=== PATIENT | male | born 1955 | race Caucasian/White ===

== ENCOUNTER 2016-12-14 15:20 | Inpatient (IN) | payer BC ==
[~2016-12-14] VITALS: Ht 170.2 cm; Wt 103.8 kg
[2016-12-14 16:12] VITALS: BP_SYST 108; BP_SYST 118; RESP 24; TEMP 97.7
[2016-12-14 16:13] VITALS: BMI 36.8
[2016-12-14] MEDS: METOPROLOL XL 25 MG TAB PO SCH (16:15)
[2016-12-14] MEDS: DIGOXIN 0.25 MG TAB PO SCH (16:15)
[2016-12-14 16:26] VITALS: Ht 170.2 cm; Wt 103.8 kg
[2016-12-14] MEDS ORDERED: KCL CR 20 MEQ TAB PO ONE (17:55)
[2016-12-14] MEDS: ASPIRIN 81 MG CHEW TAB PO SCH (17:56)
[2016-12-14] MEDS: SPIRONOLACTONE 25 MG TAB PO SCH (18:03)
[2016-12-14] MEDS: DIGOXIN 0.125 MG TAB PO ONE ×2 (18:09→18:53)
[2016-12-14] MEDS: DIGOXIN 0.25 MG TAB PO ONE ×2 (18:10→18:54)
[2016-12-14] MEDS ORDERED: Furosemide 20 MG/2 ML VIAL IV ONE (18:40)
[2016-12-14] MEDS: KCL CR 20 MEQ TAB PO SCH (18:55)
[2016-12-14 19:35] VITALS: BP_SYST 120; RESP 22; TEMP 97.3
[2016-12-14] MEDS: ENOXAPARIN 40 MG/0.4 ML SYR SUBQ SCH (20:43)
[2016-12-14] MEDS: Furosemide 20 MG/2 ML VIAL IV SCH (20:43)
[2016-12-14] MEDS: ENTRESTO PO SCH (20:45)
[2016-12-14] MEDS: Atorvastatin 10 MG TAB PO SCH (20:45)
[2016-12-14] MEDS: PANTOPRAZOLE 40 MG TAB PO SCH (20:45)
[2016-12-14] MEDS: ZOLPIDEM 5 MG TAB PO PRN (22:09)
[2016-12-14 22:40] VITALS: BP_SYST 138; RESP 22; TEMP 97.9
[2016-12-15] VITALS (8 sets, daily range): BP systolic 101–132; RESP 20–24; TEMP 97.2–97.9
[2016-12-15] MEDS: SPIRONOLACTONE 25 MG TAB PO SCH (09:37)
[2016-12-15] MEDS: ASPIRIN 81 MG CHEW TAB PO SCH (09:37)
[2016-12-15] MEDS: Furosemide 20 MG/2 ML VIAL IV SCH (09:37)
[2016-12-15] MEDS: METOPROLOL XL 25 MG TAB PO SCH (09:38)
[2016-12-15] MEDS: KCL CR 20 MEQ TAB PO SCH ×2 (09:38→21:42)
[2016-12-15] MEDS: ENTRESTO PO SCH ×2 (09:38→21:42)
[2016-12-15] MEDS: ENOXAPARIN 40 MG/0.4 ML SYR SUBQ SCH (09:39)
[2016-12-15] MEDS: DIGOXIN 0.25 MG TAB PO SCH (12:00)
[2016-12-15] MEDS ORDERED: KCL CR 20 MEQ TAB PO ONE (17:40)
[2016-12-15] MEDS ORDERED: DIGOXIN 0.125 MG TAB PO ONE (17:40)
[2016-12-15] MEDS: DUONEB INH SCH ×2 (17:52→23:07)
[2016-12-15] MEDS: PANTOPRAZOLE 40 MG TAB PO SCH (21:41)
[2016-12-15] MEDS: Atorvastatin 10 MG TAB PO SCH (21:42)
[2016-12-15] MEDS: ZOLPIDEM 5 MG TAB PO PRN (21:47)
[2016-12-16] VITALS (8 sets, daily range): BP systolic 90–126; RESP 20–25; TEMP 97.4–98.6
[2016-12-16] MEDS ORDERED: ONDANSETRON 4 MG TAB PO PRN (00:30)
[2016-12-16] MEDS: PANTOPRAZOLE 40 MG TAB PO SCH ×2 (06:14→16:34)
[2016-12-16] MEDS: Furosemide 20 MG/2 ML VIAL IV SCH (08:49)
[2016-12-16] MEDS: SPIRONOLACTONE 25 MG TAB PO SCH (08:51)
[2016-12-16] MEDS: ASPIRIN 81 MG CHEW TAB PO SCH (08:51)
[2016-12-16] MEDS: ENOXAPARIN 40 MG/0.4 ML SYR SUBQ SCH (08:51)
[2016-12-16] MEDS: ENTRESTO PO SCH ×2 (08:51→19:31)
[2016-12-16] MEDS: METOPROLOL XL 25 MG TAB PO SCH (08:51)
[2016-12-16] MEDS: KCL CR 20 MEQ TAB PO SCH (08:52)
[2016-12-16] MEDS: DIGOXIN 0.25 MG TAB PO SCH (11:34)
[2016-12-16] MEDS ORDERED: Furosemide 20 MG/2 ML VIAL IV ONE (15:00)
[2016-12-16] MEDS: DUONEB INH SCH ×2 (17:15→22:04)
[2016-12-16] MEDS: ZOLPIDEM 5 MG TAB PO PRN (19:32)
[2016-12-16] MEDS: Atorvastatin 10 MG TAB PO SCH (19:32)
[2016-12-16] MEDS: SERTRALINE 25 MG TAB PO SCH (19:32)
[2016-12-16] MEDS ORDERED: LORAZEPAM 0.5 MG TAB PO PRN (23:40)
[2016-12-17] MEDS ORDERED: KCL CR 20 MEQ TAB PO SCH
[2016-12-17 03:47] VITALS: BP_SYST 118; RESP 20; TEMP 97.9
[2016-12-17] MEDS: PANTOPRAZOLE 40 MG TAB PO SCH ×2 (06:52→17:25)
[2016-12-17] MEDS: DUONEB INH SCH ×3 (06:52→23:55)
[2016-12-17 07:52] VITALS: BP_SYST 120; RESP 20; TEMP 98.1
[2016-12-17] MEDS: ENTRESTO PO SCH (09:20)
[2016-12-17] MEDS: METOPROLOL XL 25 MG TAB PO SCH (09:20)
[2016-12-17] MEDS: ASPIRIN 81 MG CHEW TAB PO SCH (09:20)
[2016-12-17] MEDS: SPIRONOLACTONE 25 MG TAB PO SCH (09:20)
[2016-12-17] MEDS: Furosemide 20 MG/2 ML VIAL IV SCH (09:21)
[2016-12-17] MEDS: ENOXAPARIN 40 MG/0.4 ML SYR SUBQ SCH (09:22)
[2016-12-17 12:10] VITALS: BP_SYST 110; RESP 28; TEMP 98.3
[2016-12-17] MEDS: DIGOXIN 0.25 MG TAB PO SCH (12:32)
[2016-12-17 15:37] VITALS: BP_SYST 104; RESP 24; TEMP 98.2
[2016-12-17 19:40] VITALS: BP_SYST 118; RESP 22; TEMP 98.1
[2016-12-17] MEDS: Atorvastatin 10 MG TAB PO SCH (20:23)
[2016-12-17] MEDS: SERTRALINE 25 MG TAB PO SCH (20:23)
[2016-12-17] MEDS: ENTRESTO 24/26 MG TAB PO SCH (20:24)
[2016-12-17] MEDS: ZOLPIDEM 5 MG TAB PO PRN (22:18)
[2016-12-18 01:22] VITALS: BP_SYST 140; RESP 24; TEMP 98.3
[2016-12-18 03:45] VITALS: BP_SYST 132; RESP 22; TEMP 98.9
[2016-12-18] MEDS: PANTOPRAZOLE 40 MG TAB PO SCH ×2 (06:50→17:06)
[2016-12-18] MEDS: DUONEB INH SCH ×3 (07:37→23:00)
[2016-12-18 08:17] VITALS: BP_SYST 152; RESP 20; TEMP 97
[2016-12-18] MEDS: METOPROLOL XL 25 MG TAB PO SCH (08:37)
[2016-12-18] MEDS: SPIRONOLACTONE 25 MG TAB PO SCH (08:37)
[2016-12-18] MEDS: ENTRESTO 24/26 MG TAB PO SCH ×2 (08:37→21:07)
[2016-12-18] MEDS: ASPIRIN 81 MG CHEW TAB PO SCH (08:37)
[2016-12-18] MEDS: ENOXAPARIN 40 MG/0.4 ML SYR SUBQ SCH (08:39)
[2016-12-18] MEDS: Furosemide 20 MG/2 ML VIAL IV SCH (08:40)
[2016-12-18 10:43] VITALS: BP_SYST 130; RESP 22; TEMP 97.6
[2016-12-18] MEDS: DIGOXIN 0.25 MG TAB PO SCH (12:29)
[2016-12-18 14:29] VITALS: BP_SYST 112; RESP 18; TEMP 97.1
[2016-12-18] MEDS ORDERED: Furosemide 20 MG/2 ML VIAL IV ONE (16:05)
[2016-12-18 19:18] VITALS: BP_SYST 120; RESP 20; TEMP 97.4
[2016-12-18] MEDS: Atorvastatin 10 MG TAB PO SCH (21:07)
[2016-12-18] MEDS: SERTRALINE 25 MG TAB PO SCH (21:07)
[2016-12-18] MEDS: ZOLPIDEM 5 MG TAB PO PRN (21:13)
[2016-12-19 03:36] VITALS: BP_SYST 110; RESP 18; TEMP 98; TEMP 98.4
[2016-12-19] MEDS: PANTOPRAZOLE 40 MG TAB PO SCH ×2 (05:57→17:01)
[2016-12-19] MEDS: DUONEB INH SCH ×3 (06:54→22:59)
[2016-12-19 08:16] VITALS: BP_SYST 132; RESP 20; TEMP 97.4
[2016-12-19] MEDS: ASPIRIN 81 MG CHEW TAB PO SCH (08:18)
[2016-12-19] MEDS: Furosemide 40 MG/4 ML VIAL IV SCH (08:18)
[2016-12-19] MEDS: METOPROLOL XL 25 MG TAB PO SCH (08:18)
[2016-12-19] MEDS: ENOXAPARIN 40 MG/0.4 ML SYR SUBQ SCH (08:19)
[2016-12-19] MEDS: ENTRESTO 24/26 MG TAB PO SCH ×2 (08:19→21:49)
[2016-12-19] MEDS: SPIRONOLACTONE 25 MG TAB PO SCH (08:19)
[2016-12-19 12:11] VITALS: BP_SYST 122; RESP 20; TEMP 97.6
[2016-12-19] MEDS: DIGOXIN 0.25 MG TAB PO SCH (12:35)
[2016-12-19 14:51] VITALS: BP_SYST 122; RESP 20; TEMP 97.5
[2016-12-19 19:31] VITALS: BP_SYST 110; RESP 18; TEMP 97.2
[2016-12-19] MEDS: Atorvastatin 10 MG TAB PO SCH (21:49)
[2016-12-19] MEDS: ZOLPIDEM 5 MG TAB PO PRN (21:49)
[2016-12-19] MEDS: SERTRALINE 25 MG TAB PO SCH (21:49)
[2016-12-20] MEDS: PANTOPRAZOLE 40 MG TAB PO SCH ×2 (06:34→17:18)
[2016-12-20] MEDS: DUONEB INH SCH ×3 (07:23→22:19)
[2016-12-20 08:26] VITALS: BP_SYST 122; RESP 20; TEMP 96.8
[2016-12-20] MEDS: Furosemide 40 MG/4 ML VIAL IV SCH (09:20)
[2016-12-20] MEDS: METOPROLOL XL 25 MG TAB PO SCH (09:20)
[2016-12-20] MEDS: ASPIRIN 81 MG CHEW TAB PO SCH (09:20)
[2016-12-20] MEDS: ENTRESTO 24/26 MG TAB PO SCH ×2 (09:20→21:40)
[2016-12-20] MEDS: SPIRONOLACTONE 25 MG TAB PO SCH (09:20)
[2016-12-20] MEDS: ENOXAPARIN 40 MG/0.4 ML SYR SUBQ SCH (09:21)
[2016-12-20 11:31] VITALS: BP_SYST 112; RESP 20; TEMP 97.4
[2016-12-20] MEDS: DIGOXIN 0.25 MG TAB PO SCH (12:51)
[2016-12-20 15:31] VITALS: BP_SYST 112; RESP 20; TEMP 97.6
[2016-12-20 20:32] VITALS: BP_SYST 100; RESP 20; TEMP 97.8
[2016-12-20] MEDS: Atorvastatin 10 MG TAB PO SCH (21:40)
[2016-12-20] MEDS: SERTRALINE 25 MG TAB PO SCH (21:40)
[2016-12-20] MEDS: ZOLPIDEM 5 MG TAB PO PRN (21:40)
[2016-12-21 00:41] VITALS: BP_SYST 110; RESP 20; TEMP 97.5
[2016-12-21 05:12] VITALS: BP_SYST 106; RESP 18; TEMP 97.7
[2016-12-21] MEDS: PANTOPRAZOLE 40 MG TAB PO SCH (06:13)
[2016-12-21] MEDS: DUONEB INH SCH (07:00)
[2016-12-21 07:42] VITALS: BP_SYST 128; BP_SYST 83; RESP 18; TEMP 97.3
[2016-12-21] MEDS: ASPIRIN 81 MG CHEW TAB PO SCH (08:55)
[2016-12-21] MEDS: SPIRONOLACTONE 25 MG TAB PO SCH (08:55)
[2016-12-21] MEDS: ENTRESTO 24/26 MG TAB PO SCH (08:56)
[2016-12-21] MEDS: METOPROLOL XL 25 MG TAB PO SCH (08:57)
[2016-12-21] MEDS: ENOXAPARIN 40 MG/0.4 ML SYR SUBQ SCH (08:58)
[2016-12-21] MEDS ORDERED: BUMETANIDE 1 MG TAB PO SCH (09:00)
[2016-12-21] MEDS ORDERED: MISSING DOSE XX ONE ×2 (09:15)
[2016-12-21 11:19] VITALS: BP_SYST 100; RESP 16; TEMP 97.5
[2016-12-21] MEDS: DIGOXIN 0.25 MG TAB PO SCH (12:00)
[2016-12-21 13:19] VITALS: BP_SYST 100; RESP 16; TEMP 97.5
[2016-12-21 13:29] VITALS: BP_SYST 100; RESP 16; TEMP 97.5
== END 2016-12-21 14:12 | disposition home or self-care (01) | DRG 291 ==
LOC: ENRESERVDT → ENRESERVTM → 4NT 15:47 → OBSVTOIN 12-18 15:20 → ENPENDDIS 12-18 15:20
PROVIDERS: ADMIT Internal Medicine Cardiovascular Disease; ATTEND Internal Medicine Cardiovascular Disease
DX: I13.0 Hypertensive heart and chronic kidney disease with heart failure and stage 1 through stage 4 chronic kidney disease, or unspecified chronic kidney disease (principal); I50.43 Acute on chronic combined systolic (congestive) and diastolic (congestive) heart failure; E88.81 Metabolic syndrome and other insulin resistance; I42.0 Dilated cardiomyopathy; Z95.810 Presence of automatic (implantable) cardiac defibrillator; I34.0 Nonrheumatic mitral (valve) insufficiency; M54.9 Dorsalgia, unspecified; J45.909 Unspecified asthma, uncomplicated; E66.9 Obesity, unspecified; Z68.35 Body mass index [BMI] 35.0-35.9, adult; N18.3 Chronic kidney disease, stage 3 (moderate); Z79.82 Long term (current) use of aspirin; E87.6 Hypokalemia
CPT/HCPCS: 71010; 80048; 80053; 80162; 81003; 82570; 83735; 83880; 84100; 84156; 85025; 85379; 93005; 94640; 94799